=== PATIENT | male | born 1980 | race Caucasian/White ===

== ENCOUNTER 2016-10-24 19:21 | Inpatient (IN) | payer OTHER ==
[~2016-10-24] VITALS: Ht 160 cm; Wt 67.5 kg
[2016-10-24] MEDS ORDERED: DOCUSATE SODIUM 100 MG CAP PO PRN (22:00)
[2016-10-24] MEDS ORDERED: ONDANSETRON 4 MG TAB PO PRN (22:00)
[2016-10-24] MEDS ORDERED: oxyCODONE (CR) 15 MG TAB [oxyCONTIN] PO PRN (22:00)
[2016-10-24] MEDS ORDERED: MAGNESIUM HYDROXIDE 30ML CUP PO PRN (22:00)
[2016-10-24] MEDS ORDERED: BISACODYL 10 MG SUPP PR PRN (22:30)
[2016-10-24] MEDS ORDERED: LACTULOSE 30ML CUP PO PRN (22:30)
[2016-10-24] MEDS: ZOLPIDEM 5 MG TAB PO PRN (22:33)
[2016-10-24] MEDS: DIPHENHYDRAMINE 25 MG CAP PO PRN (22:33)
[2016-10-24 23:29] VITALS: Ht 160 cm; Wt 67.5 kg
[2016-10-25 06:48] LABS: ADD SCAN DIFF NO
[2016-10-25 06:52] LABS: BASOPHILS % 0.4 % (0.0-2.0); EOSINOPHILS # 0.5 10^3/ul (0.0-0.5); EOSINOPHILS % 6.3 % (0.0-7.0); HEMATOCRIT 41.8 % (42.0-52.0); LYMPHOCYTES # 2.1 10^3/ul (0.8-2.9); LYMPHOCYTES % 26.8 % (15.0-51.0); MEAN CORPUSCULAR HEMOGLOBIN 28.6 pg (29.0-33.0); MEAN CORPUSCULAR HGB CONC 33.5 g/dl (32.0-37.0); MEAN CORPUSCULAR VOLUME 85.5 fl (82.0-101.0); MEAN PLATELET VOLUME 8.6 fl (7.4-10.4); MONOCYTE # 0.6 10^3/ul (0.3-0.9); MONOCYTES % 7.4 % (0.0-11.0); NEUTROPHIL # 4.7 10^3/ul (1.6-7.5); NEUTROPHILS % 58.8 % (39.0-77.0); PLATELET COUNT 287 10^3/UL (140-415); RED BLOOD COUNT 4.89 10^6/ul (4.70-6.10)
[2016-10-25 07:18] LABS: ALBUMIN 4.3 g/dl (3.3-4.9)
[2016-10-25 07:19] LABS: POTASSIUM 4.3 mmol/L (3.5-5.1)
[2016-10-25 07:21] LABS: ALBUMIN/GLOBULIN RATIO 1.53; BILIRUBIN,INDIRECT 0.1 mg/dl (0-1.1); BILIRUBIN,TOTAL 0.1 mg/dl (0.2-1.3); CALCIUM 8.9 mg/dl (8.4-10.2); CREATININE 0.75 mg/dl (0.61-1.24); TOTAL PROTEIN 7.1 g/dl (6.1-8.1)
[2016-10-25] MEDS: POLYETHYLENE GLYCOL 17 GM PACKET PO SCH (09:00)
[2016-10-25] MEDS: BACLOFEN 10 MG TAB PO SCH ×2 (09:00→21:00)
[2016-10-25] MEDS: RANITIDINE 150 MG TAB PO SCH ×2 (09:00→21:00)
[2016-10-25] MEDS: TOLTERODINE (SR) 4 MG CAP PO SCH (09:00)
[2016-10-25] MEDS: GABAPENTIN 300 MG CAP PO SCH ×3 (09:22→22:02)
[2016-10-25 10:35] LABS: ADD UMIC NO; URINE BILIRUBIN (Dip) NEGATIVE (NEGATIVE); URINE BLOOD (Dip) NEGATIVE (NEGATIVE); URINE COLOR YELLOW (YELLOW); URINE GLUCOSE (Dip) NEGATIVE (NEGATIVE); URINE KETONES (Dip) NEGATIVE (NEGATIVE); URINE LEUKOCYTE ESTERASE (Dip) NEGATIVE (NEGATIVE); URINE NITRITE (Dip) NEGATIVE (NEGATIVE); URINE TOTAL PROTEIN (Dip) NEGATIVE (NEGATIVE); URINE UROBILINOGEN (Dip) 0.2 E.U./dL (0.1-1.0)
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
[2016-10-25 20:00] VITALS: BP 122/75; RESP 18
[2016-10-25] MEDS: SENNA TAB PO SCH (21:00)
[2016-10-25] MEDS: DIPHENHYDRAMINE 25 MG CAP PO PRN (22:02)
[2016-10-25] MEDS: ZOLPIDEM 5 MG TAB PO PRN (22:02)
[2016-10-26 07:30] VITALS: BP 87/49; RESP 18
[2016-10-26 08:13] LABS: BILIRUBIN,INDIRECT 0.1 mg/dl (0-1.1); CALCIUM 8.8 mg/dl (8.4-10.2); CREATININE 0.66 mg/dl (0.61-1.24)
[2016-10-26 08:14] LABS: ALBUMIN 4.3 g/dl (3.3-4.9); ALBUMIN/GLOBULIN RATIO 1.43; BILIRUBIN,TOTAL 0.1 mg/dl (0.2-1.3); TOTAL PROTEIN 7.3 g/dl (6.1-8.1)
[2016-10-26] MEDS: ENOXAPARIN 40 MG/0.4 ML SYG SC SCH (09:00)
[2016-10-26] MEDS: RANITIDINE 150 MG TAB PO SCH ×2 (09:00→22:22)
[2016-10-26] MEDS: BACLOFEN 10 MG TAB PO SCH ×2 (09:00→22:22)
[2016-10-26] MEDS: GABAPENTIN 300 MG CAP PO SCH ×3 (09:00→22:20)
[2016-10-26] MEDS: POLYETHYLENE GLYCOL 17 GM PACKET PO SCH (09:00)
[2016-10-26] MEDS: TOLTERODINE (SR) 4 MG CAP PO SCH (09:00)
--- NOTE | 2016-10-26 10:48 | PN ---
DATE: 10/26/2016 SUBJECTIVE: The patient is stable, no acute events overnight. No fevers, chills, nausea, vomiting. OBJECTIVE: VITAL SIGNS: Blood pressure 122/75, respirations 18, pulse 78, temperature 98.4. HEENT: Head is normocephalic. NECK: Supple. HEART: Regular rate. LUNGS: Show diminished breath sounds at the bases. ABDOMEN: Soft, nontender to palpation. No rebound or guarding. EXTREMITIES: Negative for clubbing, cyanosis. No edema. DERMATOLOGIC: No rashes. MUSCULOSKELETAL: The patient has noted deformity of lower legs. NEUROLOGIC: No change in exam. MEDICATIONS: The patient's medications have been reviewed. LABORATORY DATA: Shows a BMP within normal limits. AST 39, ALT 200, alkaline phosphatase 219. ASSESSMENT AND PLAN: 1. Spina bifida, status post L2 to L5 laminectomy with micro-neurosurgery for tethered cord release and resection of lipomyelomeningocele. Plan at this point is continue PT, OT. Continue pain contr ol. Follow up with neurosurgery in outpatient setting. 2. History of spina bifida. Continue to monitor. Continue rehabilitation. 3. Bilateral lower extremity weakness secondary to recent neurosurgery and laminectomy. Continue P T, OT. 4. Neuropathy. Continue Neurontin. 5. Transaminitis, likely due to recent surgery. Continue to monitor. Liver function tests trendin g down. 6. Constipation. Continue current bowel regimen. 7. Urinary incontinence, neurogenic bladder. Continue Detrol. 8. Right foot ulcer. Continue wound care. 9. Status post wound infection. The patient has completed antibiotic course. 10. Gastrointestinal and deep venous thrombosis prophylaxis. Continue Lovenox and H2 scooby. Dictated By: BERNA TOM/LUIS ARMANDO Conf#: [id number] DID#: [id number]
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
[2016-10-26] MEDS: HYDROmorphONE 4 MG TAB PO PRN (13:58)
[2016-10-26 20:00] VITALS: BP 136/76; RESP 18
[2016-10-26] MEDS: SENNA TAB PO SCH (21:00)
[2016-10-26] MEDS: DIPHENHYDRAMINE 25 MG CAP PO PRN (22:20)
[2016-10-26] MEDS: ZOLPIDEM 5 MG TAB PO PRN (22:20)
[2016-10-27] MEDS: BACLOFEN 10 MG TAB PO SCH ×2 (09:00→21:00)
[2016-10-27] MEDS: TOLTERODINE (SR) 4 MG CAP PO SCH (09:00)
[2016-10-27] MEDS: ENOXAPARIN 40 MG/0.4 ML SYG SC SCH (09:00)
[2016-10-27] MEDS: RANITIDINE 150 MG TAB PO SCH ×2 (09:00→21:00)
[2016-10-27] MEDS: POLYETHYLENE GLYCOL 17 GM PACKET PO SCH (09:00)
[2016-10-27] MEDS: GABAPENTIN 300 MG CAP PO SCH ×3 (09:37→22:35)
[2016-10-27] MEDS ORDERED: POLYETHYLENE GLYCOL 17 GM PACKET PO PRN (10:30)
--- NOTE | 2016-10-27 10:39 | PN ---
DATE: 10/27/2016 SUBJECTIVE: The patient remains stable. He has been refusing medications. He has been refusing Lo venox. I explained to the patient in detail about DVT risk. He still does not like the injections. No other events noted. No hemoptysis, hematemesis, or hematochezia. OBJECTIVE: VITAL SIGNS: Blood pressure 136/76, respiration 18, pulse 78, temperature 98.0. HEENT: Head is normocephalic. NECK: Supple. HEART: Regular rate. LUNGS: Show diminished breath sounds at base. ABDOMEN: Soft, nontender to palpation without rebound or guarding. EXTREMITIES: Negative for clubbing, cyanosis, or edema. DERMATOLOGIC: No rashes. MUSCULOSKELETAL: The patient has noted lower extremity deformity. NEUROLOGIC: No change in exam. MEDICATIONS: The patient's medications have been reviewed. LABORATORY DATA: Has been reviewed. ASSESSMENT AND PLAN: 1. 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 Plan at this point is continue PT, OT. Continue pain control. 2. History of spina bifida. Continue to monitor, continue rehabilitation 3. Lower extremity weakness secondary to recent neurosurgeon laminectomy. Continue PT, OT. 4. Neuropathy. Continue Neurontin. 5. Transaminitis. Continue to monitor. LFTs have been trending down. 6. Constipation. Continue current bowel regimen. 7. Urinary incontinence, neurogenic bladder. Continue Detrol. 8. Right foot wound. Continue local wound care. 9. Gastrointestinal and deep venous thrombosis prophylaxis. Continue H2 scooby. The patient is r efusing Lovenox. We will start aspirin 325 p.o. b.i.d. and monitor. Dictated By: BERNA TOM/NTS Conf#: [id number] DID#: [id number]
[2016-10-27] MEDS: ASPIRIN (EC) 325 MG TAB PO SCH ×2 (10:40→22:35)
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
[2016-10-27 20:00] VITALS: BP 124/77; PULSE 81; RESP 18
[2016-10-27] MEDS: SENNA TAB PO SCH (21:00)
[2016-10-27] MEDS: SCOPOLAMINE 1.5 MG PATCH TRANSDERM SCH (22:00)
[2016-10-27] MEDS: ZOLPIDEM 5 MG TAB PO PRN (22:36)
[2016-10-27] MEDS: DIPHENHYDRAMINE 25 MG CAP PO PRN (22:36)
[2016-10-28 07:30] VITALS: BP 94/55; RESP 18
[2016-10-28 07:33] LABS: ADD SCAN DIFF NO
[2016-10-28 07:38] LABS: BASOPHIL # 0.1 10^3/ul (0.0-0.1); BASOPHILS % 0.9 % (0.0-2.0); EOSINOPHILS # 0.6 10^3/ul (0.0-0.5); EOSINOPHILS % 6.9 % (0.0-7.0); HEMATOCRIT 43.9 % (42.0-52.0); HEMOGLOBIN 14.4 g/dl (14.0-18.0); LYMPHOCYTES # 2.7 10^3/ul (0.8-2.9); LYMPHOCYTES % 32.9 % (15.0-51.0); MEAN CORPUSCULAR HGB CONC 32.8 g/dl (32.0-37.0); MEAN CORPUSCULAR VOLUME 88.3 fl (82.0-101.0); MEAN PLATELET VOLUME 8.9 fl (7.4-10.4); MONOCYTE # 0.7 10^3/ul (0.3-0.9); NEUTROPHIL # 4.1 10^3/ul (1.6-7.5); NEUTROPHILS % 49.9 % (39.0-77.0); PLATELET COUNT 313 10^3/UL (140-415); RED BLOOD COUNT 4.97 10^6/ul (4.70-6.10); RED CELL DISTRIBUTION WIDTH 15.9 % (11.5-14.5); WHITE BLOOD COUNT 8.2 10^3/ul (4.8-10.8)
--- NOTE | 2016-10-28 08:09 | CONS ---
Date/Time of Note Date/Time of Note DATE: 10/28/16 TIME: 08:07 Consult Date/Type/Reason Admit Date/Time October 24, 2016 at 21:04 Initial Consult Date Subjective The patient remains stable. He has been refusing medications. He has been refusing Lovenox. No other events noted. No hemoptysis, hematemesis, or hematochezia. tolerating meds and therapies.poc reviewed with dr. nixon OBJECTIVE: HEENT: Head is normocephalic. NECK: Supple. HEART: Regular rate. LUNGS: Show diminished breath sounds at base. ABDOMEN: Soft, nontender to palpation without rebound or guarding. EXTREMITIES: Negative for clubbing, cyanosis, or edema. DERMATOLOGIC: No rashes. MUSCULOSKELETAL: The patient has noted lower extremity deformity. NEUROLOGIC: No change in exam. MEDICATIONS: The patient's medications have been reviewed. Objective Vital Signs Date Time Temp Pulse Resp B/P Pulse Ox O2 Delivery O2 Flow Rate FiO2 10/27/16 20:00 97.9 81 18 124/77 94 Room Air Intake and Output 10/27/16 10/27/16 10/28/16 15:00 23:00 07:00 Intake Total 1100 ml 360 ml Output Total 450 ml 200 ml Balance 650 ml 160 ml Results/Medications Result Diagram: 10/28/16 0605 10/26/16 0610 Results 24 hrs Laboratory Tests Test 10/28/16 06:05 White Blood Count 8.2 Red Blood Count 4.97 Hemoglobin 14.4 Hematocrit 43.9 Mean Corpuscular Volume 88.3 Mean Corpuscular Hemoglobin 29.0 Mean Corpuscular Hemoglobin Concent 32.8 Red Cell Distribution Width 15.9 H Platelet Count 313 Mean Platelet Volume 8.9 Neutrophils % 49.9 Lymphocytes % 32.9 Monocytes % 9.0 Eosinophils % 6.9 Basophils % 0.9 Nucleated Red Blood Cells % 0.0 Neutrophils # 4.1 Lymphocytes # 2.7 Monocytes # 0.7 Eosinophils # 0.6 H Basophils # 0.1 Nucleated Red Blood Cells # 0.0 Medications Current Medications Baclofen (Lioresal) 10 mg BID PO ; Start 10/25/16 at 09:00 Docusate Sodium (Colace) 100 mg BID PRN PO CONSTIPATION; Start 10/24/16 at 22: 00 Gabapentin (Neurontin) 600 mg TID PO Last administered on 10/27/16 22:35; Admin Dose 600 MG; Start 10/25/16 at 09:00 Ranitidine HCl (Zantac) 150 mg BID PO ; Start 10/25/16 at 09:00 Scopolamine (Transderm-Scop) 1 patch Q72H TRANSDERM ; Start 10/27/16 at 22:00 Tolterodine Tartrate (Detrol La) 4 mg DAILY PO ; Start 10/25/16 at 09:00 Hydromorphone HCl (Dilaudid) 4 mg Q4H PRN PO PAIN; Start 10/24/16 at 22:00 Magnesium Hydroxide (Milk Of Mag) 30 ml DAILY PRN PO CONSTIPATION; Start at 22:00 Ondansetron HCl (Zofran Tab) 4 mg TID PRN PO NAUSEA AND/OR VOMITING; Start at 22:00 Zolpidem Tartrate (Ambien) 10 mg HS PRN PO INSOMNIA Last administered on 22:36; Admin Dose 10 MG; Start 10/24/16 at 22:00 Oxycodone HCl (Oxycontin) 15 mg Q4 PRN PO PAIN LEVEL 1-5; Start 10/24/16 at 22: 00; Status Future Hold Diphenhydramine HCl (Benadryl) 25 mg Q6H PRN PO ITCHING Last administered on 22:36; Admin Dose 25 MG; Start 10/24/16 at 22:30 Senna (Senokot) 1 tab HS PO ; Start 10/25/16 at 21:00 Lactulose (Enulose) 20 gm DAILY PRN PO CONSTIPATION; Start 10/24/16 at 22:30 Bisacodyl (Dulcolax Supp) 10 mg DAILY PRN [place] CONSTIPATION; Start 10/24/16 at 22 :30 Acetaminophen (Tylenol Tab) 650 mg Q4H PRN PO PAIN; Start 10/24/16 at 22:30 Enoxaparin Sodium (Lovenox) 40 mg DAILY SC ; Start 10/26/16 at 09:00 Polyethylene Glycol (Miralax) 17 gm DAILY PRN PO CONSTIPATION; Start 10/27/16 at 10:30 Assessment/Plan Chief Complaint/Hosp Course 1. 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 Plan at this point is continue PT, OT. Continue pain control. 2. History of spina bifida. Continue to monitor, continue rehabilitation 3. Lower extremity weakness secondary to recent neurosurgeon laminectomy. Continue PT, OT. 4. Neuropathy. Continue Neurontin. 5. Transaminitis. Continue to monitor. LFTs have been trending down. 6. Constipation. Continue current bowel regimen. 7. Urinary incontinence, neurogenic bladder. Continue Detrol. 8. Right foot wound. Continue local wound care. 9. Gastrointestinal and deep venous thrombosis prophylaxis. Continue H2 scooby. The patient is refusing Lovenox. We will start aspirin 325 p.o. b.i.d. and monitor. Problems: ESCOBAR MARES MD Oct 28, 2016 08:09
[2016-10-28] MEDS: BACLOFEN 10 MG TAB PO SCH ×2 (09:00→21:00)
[2016-10-28] MEDS: RANITIDINE 150 MG TAB PO SCH ×2 (09:00→21:00)
[2016-10-28] MEDS: TOLTERODINE (SR) 4 MG CAP PO SCH (09:00)
[2016-10-28] MEDS: GABAPENTIN 300 MG CAP PO SCH ×4 (09:59→22:35)
[2016-10-28] MEDS: ENOXAPARIN 40 MG/0.4 ML SYG SC SCH (09:59)
[2016-10-28 20:10] VITALS: BP 108/72; RESP 19
[2016-10-28] MEDS: SENNA TAB PO SCH (21:00)
[2016-10-28] MEDS: DIPHENHYDRAMINE 25 MG CAP PO PRN (22:34)
[2016-10-28] MEDS: ZOLPIDEM 5 MG TAB PO PRN (22:34)
--- NOTE | 2016-10-29 07:43 | CONS ---
Date/Time of Note Date/Time of Note DATE: 10/29/16 TIME: 07:41 Consult Date/Type/Reason Admit Date/Time October 24, 2016 at 21:04 Subjective The patient remains stable. No other events noted. No hemoptysis, hematemesis , or hematochezia. tolerating meds and therapies.poc reviewed with dr. nixon OBJECTIVE: HEENT: Head is normocephalic. NECK: Supple. HEART: Regular rate. LUNGS: Show diminished breath sounds at base. ABDOMEN: Soft, nontender to palpation without rebound or guarding. EXTREMITIES: Negative for clubbing, cyanosis, or edema. DERMATOLOGIC: No rashes. MUSCULOSKELETAL: The patient has noted lower extremity deformity. NEUROLOGIC: No change in exam. MEDICATIONS: The patient's medications have been reviewed. Objective Vital Signs Date Time Temp Pulse Resp B/P Pulse Ox O2 Delivery O2 Flow Rate FiO2 10/28/16 20:10 98.4 73 19 108/72 97 10/27/16 20:00 Room Air Intake and Output 10/28/16 10/28/16 10/29/16 15:00 23:00 07:00 Intake Total 240 ml 420 ml 480 ml Balance 240 ml 420 ml 480 ml Results/Medications Result Diagram: 10/28/16 0605 10/26/16 0610 Medications Current Medications Baclofen (Lioresal) 10 mg BID PO ; Start 10/25/16 at 09:00 Docusate Sodium (Colace) 100 mg BID PRN PO CONSTIPATION; Start 10/24/16 at 22: 00 Gabapentin (Neurontin) 600 mg TID PO Last administered on 10/28/16t 22:35; Admin Dose 600 MG; Start 10/25/16 at 09:00 Ranitidine HCl (Zantac) 150 mg BID PO ; Start 10/25/16 at 09:00 Scopolamine (Transderm-Scop) 1 patch Q72H TRANSDERM ; Start 10/27/16 at 22:00 Tolterodine Tartrate (Detrol La) 4 mg DAILY PO ; Start 10/25/16 at 09:00 Hydromorphone HCl (Dilaudid) 4 mg Q4H PRN PO PAIN; Start 10/24/16 at 22:00 Magnesium Hydroxide (Milk Of Mag) 30 ml DAILY PRN PO CONSTIPATION; Start at 22:00 Ondansetron HCl (Zofran Tab) 4 mg TID PRN PO NAUSEA AND/OR VOMITING; Start at 22:00 Zolpidem Tartrate (Ambien) 10 mg HS PRN PO INSOMNIA Last administered on 22:34; Admin Dose 10 MG; Start 10/24/16 at 22:00 Oxycodone HCl (Oxycontin) 15 mg Q4 PRN PO PAIN LEVEL 1-5; Start 10/24/16 at 22: 00; Status Future Hold Diphenhydramine HCl (Benadryl) 25 mg Q6H PRN PO ITCHING Last administered on 22:34; Admin Dose 25 MG; Start 10/24/16 at 22:30 Senna (Senokot) 1 tab HS PO ; Start 10/25/16 at 21:00 Lactulose (Enulose) 20 gm DAILY PRN PO CONSTIPATION; Start 10/24/16 at 22:30 Bisacodyl (Dulcolax Supp) 10 mg DAILY PRN [place] CONSTIPATION; Start 10/24/16 at 22 :30 Acetaminophen (Tylenol Tab) 650 mg Q4H PRN PO PAIN; Start 10/24/16 at 22:30 Enoxaparin Sodium (Lovenox) 40 mg DAILY SC Last administered on 10/28/16 09:59 ; Admin Dose 40 MG; Start 10/26/16 at 09:00 Polyethylene Glycol (Miralax) 17 gm DAILY PRN PO CONSTIPATION; Start 10/27/16 at 10:30 Assessment/Plan Chief Complaint/Hosp Course 1. 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 Plan at this point is continue PT, OT. Continue pain control. 2. History of spina bifida. Continue to monitor, continue rehabilitation 3. Lower extremity weakness secondary to recent neurosurgeon laminectomy. Continue PT, OT. 4. Neuropathy. Continue Neurontin. 5. Transaminitis. Continue to monitor. LFTs have been trending down. 6. Constipation. Continue current bowel regimen. 7. Urinary incontinence, neurogenic bladder. Continue Detrol. 8. Right foot wound. Continue local wound care. 9. Gastrointestinal and deep venous thrombosis prophylaxis. Continue H2 scooby. The patient is refusing Lovenox. We will start aspirin 325 p.o. b.i.d. and monitor. Problems: ESCOBAR MARES MD Oct 29, 2016 07:43
[2016-10-29] MEDS: RANITIDINE 150 MG TAB PO SCH ×2 (09:00→21:00)
[2016-10-29] MEDS: ENOXAPARIN 40 MG/0.4 ML SYG SC SCH ×2 (09:00→14:33)
[2016-10-29] MEDS: GABAPENTIN 300 MG CAP PO SCH ×3 (09:00→22:06)
[2016-10-29] MEDS: BACLOFEN 10 MG TAB PO SCH ×2 (09:00→21:00)
[2016-10-29] MEDS: TOLTERODINE (SR) 4 MG CAP PO SCH (09:00)
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
[2016-10-29 20:00] VITALS: BP 113/73; PULSE 93; RESP 18
[2016-10-29] MEDS: SENNA TAB PO SCH (21:00)
[2016-10-29] MEDS: ZOLPIDEM 5 MG TAB PO PRN (22:05)
[2016-10-29] MEDS: DIPHENHYDRAMINE 25 MG CAP PO PRN (22:06)
[2016-10-30 07:30] VITALS: BP 95/52; RESP 18
[2016-10-30] MEDS: TOLTERODINE (SR) 4 MG CAP PO SCH (09:00)
[2016-10-30] MEDS: GABAPENTIN 300 MG CAP PO SCH ×3 (09:00→21:15)
[2016-10-30] MEDS: BACLOFEN 10 MG TAB PO SCH ×2 (09:00→21:00)
[2016-10-30] MEDS: RANITIDINE 150 MG TAB PO SCH ×2 (09:00→21:00)
[2016-10-30] MEDS: ENOXAPARIN 40 MG/0.4 ML SYG SC SCH ×2 (09:00→12:41)
--- NOTE | 2016-10-30 12:03 | CONS ---
Date/Time of Note Date/Time of Note DATE: 10/30/16 TIME: 12:03 Consult Date/Type/Reason Admit Date/Time October 24, 2016 at 21:04 Objective Vital Signs Date Time Temp Pulse Resp B/P Pulse Ox O2 Delivery O2 Flow Rate FiO2 10/30/16 07:30 98.3 77 18 95/52 96 10/29/16 20:00 Room Air Intake and Output 10/29/16 10/29/16 10/30/16 15:00 23:00 07:00 Intake Total 480 ml Balance 480 ml INTERDISCIPLINARY TEAM CONFERENCE BOWEL- Cont BLADDER-Cont SKIN- intact OT- DRESSING-min BATHING-min TOILETING-min PT- BED MOBILITY-min TRANSFERS-min AMBULATION-min W.C. MOBILITY-sba A/P- Interdisciplinary team conference held today. Please see interdisciplinary sheet. Working toward d.c. on 11/06 with post discharge follow up of physical therapy, occupational therapy. Results/Medications Result Diagram: 10/28/16 0605 10/26/16 0610 Medications Current Medications Baclofen (Lioresal) 10 mg BID PO ; Start 10/25/16 at 09:00 Docusate Sodium (Colace) 100 mg BID PRN PO CONSTIPATION; Start 10/24/16 at 22: 00 Gabapentin (Neurontin) 600 mg TID PO Last administered on 10/29/16 22:06; Admin Dose 600 MG; Start 10/25/16 at 09:00 Ranitidine HCl (Zantac) 150 mg BID PO ; Start 10/25/16 at 09:00 Scopolamine (Transderm-Scop) 1 patch Q72H TRANSDERM ; Start 10/27/16 at 22:00 Tolterodine Tartrate (Detrol La) 4 mg DAILY PO ; Start 10/25/16 at 09:00 Hydromorphone HCl (Dilaudid) 4 mg Q4H PRN PO PAIN; Start 10/24/16 at 22:00 Magnesium Hydroxide (Milk Of Mag) 30 ml DAILY PRN PO CONSTIPATION; Start at 22:00 Ondansetron HCl (Zofran Tab) 4 mg TID PRN PO NAUSEA AND/OR VOMITING; Start at 22:00 Zolpidem Tartrate (Ambien) 10 mg HS PRN PO INSOMNIA Last administered on 22:05; Admin Dose 10 MG; Start 10/24/16 at 22:00 Oxycodone HCl (Oxycontin) 15 mg Q4 PRN PO PAIN LEVEL 1-5; Start 10/24/16 at 22: 00; Status Future Hold Diphenhydramine HCl (Benadryl) 25 mg Q6H PRN PO ITCHING Last administered on 22:06; Admin Dose 25 MG; Start 10/24/16 at 22:30 Senna (Senokot) 1 tab HS PO ; Start 10/25/16 at 21:00 Lactulose (Enulose) 20 gm DAILY PRN PO CONSTIPATION; Start 10/24/16 at 22:30 Bisacodyl (Dulcolax Supp) 10 mg DAILY PRN [place] CONSTIPATION; Start 10/24/16 at 22 :30 Acetaminophen (Tylenol Tab) 650 mg Q4H PRN PO PAIN; Start 10/24/16 at 22:30 Enoxaparin Sodium (Lovenox) 40 mg DAILY SC Last administered on 10/29/16 14:33 ; Admin Dose 40 MG; Start 10/26/16 at 09:00 Polyethylene Glycol (Miralax) 17 gm DAILY PRN PO CONSTIPATION; Start 10/27/16 at 10:30 TOMÁS YUEN MD Oct 30, 2016 12:03 TOMÁS YUEN MD Oct 30, 2016 12:03
[2016-10-30 20:03] VITALS: BP 125/85; RESP 18
[2016-10-30] MEDS: SENNA TAB PO SCH (21:00)
[2016-10-30] MEDS: DIPHENHYDRAMINE 25 MG CAP PO PRN (21:15)
[2016-10-30] MEDS: ZOLPIDEM 5 MG TAB PO PRN (21:16)
[2016-10-30] MEDS: SCOPOLAMINE 1.5 MG PATCH TRANSDERM SCH (22:00)
--- NOTE | 2016-10-31 07:32 | PN ---
DATE: 10/30/2016 SUBJECTIVE: The patient is stable. No events overnight. No fevers, chills, nausea, vomiting. OBJECTIVE: VITAL SIGNS: Temperature 130/73, respiration 18, pulse 73, temperature 98.6. HEENT: Head is normocephalic. NECK: Supple. HEART: Regular rate. LUNGS: Show diminished breath sounds at the base. ABDOMEN: Soft, nontender to palpation. No rebound or guarding. EXTREMITIES: Negative for clubbing, cyanosis. No edema. DERMATOLOGICAL: No rashes. MUSCULOSKELETAL: No joint effusion. NEUROLOGICAL: No change in exam. MEDICATIONS: Have been reviewed. LABORATORY DATA: Has been reviewed. No significant change. ASSESSMENT AND PLAN: 1. 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 The patient is currently stable. Continue physical therapy/occ upational therapy. 2. Spina bifida. Continue to monitor. Continue rehabilitation. 3. Lower extremity weakness secondary to recent neurosurgery and laminectomy. Continue physical th erapy/occupational therapy. 4. Neuropathy. Continue Neurontin. 5. Transaminitis. Continue to monitor. LFTs have been trending down. Please note the patient ref used repeat LFT blood test. 6. Constipation. Continue current bowel regimen. 7. Urinary incontinence, neurogenic bladder. Continue Detrol. 8. Right foot wound. Continue with local wound care. 9. Gastrointestinal and deep venous thrombosis prophylaxis. Continue Lovenox. Dictated By: BERNA TOM/LUIS ARMANDO Conf#: [id number] DID#: [id number]
[2016-10-31 07:40] VITALS: BP 100/60; PULSE 72; RESP 20
[2016-10-31] MEDS: TOLTERODINE (SR) 4 MG CAP PO SCH (09:00)
[2016-10-31] MEDS: RANITIDINE 150 MG TAB PO SCH ×2 (09:00→21:00)
[2016-10-31] MEDS: BACLOFEN 10 MG TAB PO SCH ×2 (09:00→21:00)
[2016-10-31] MEDS: GABAPENTIN 300 MG CAP PO SCH (09:50)
[2016-10-31] MEDS: ENOXAPARIN 40 MG/0.4 ML SYG SC SCH (09:51)
--- NOTE | 2016-10-31 12:05 | PN ---
DATE: 10/31/2016 SUBJECTIVE: The patient is stable, no acute events overnight. No fevers, chills, nausea, vomiting. OBJECTIVE: VITAL SIGNS: Blood pressure 125/85, respirations 18, pulse 89, temperature 98.5. HEENT: Head is normocephalic. NECK: Supple. HEART: Regular rate. LUNGS: Show diminished breath sounds at the bases. ABDOMEN: Soft, nontender to palpation. No rebound or guarding. EXTREMITIES: Negative for clubbing, cyanosis. No edema. DERMATOLOGIC: No rashes. MUSCULOSKELETAL: No joint effusions. NEUROLOGIC: No change in exam. MEDICATIONS: The patient's medications have been reviewed. LABORATORY DATA: Has been reviewed. No new labs. ASSESSMENT AND PLAN: 1. Spina bifida, status post L2 to L5 laminectomy with microneurosurgery for tethered cord release and resection of lipomyelomeningocele. The patient is currently stable. Continue PT, OT. 2. History of spina bifida. Continue rehabilitation 3. Lower extremity weakness secondary to recent neurosurgery and laminectomy. Continue PT, OT. 4. Neuropathy. Continue Neurontin. 5. Transaminitis. Continue to monitor. The patient has been refusing to have repeat liver functio n tests. 6. Constipation. Continue current bowel regimen. 7. Urinary incontinence, neurologic bladder. Continue Detrol. 8. Right foot wound. Continue local wound care. 9. Gastrointestinal and deep venous thrombosis prophylaxis. Continue proton pump inhibitor and Tung enox. Dictated By: BERNA TOM/LUIS ARMANDO Conf#: [id number] DID#: [id number]
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
[2016-10-31] MEDS: GABAPENTIN 300 MG CAP PO PRN (17:55)
[2016-10-31] MEDS: ACETAMINOPHEN 325 MG TAB PO PRN (17:56)
[2016-10-31] MEDS: HYDROmorphONE 4 MG TAB PO PRN (18:17)
[2016-10-31 20:06] VITALS: BP 120/75; RESP 18
[2016-10-31] MEDS: SENNA TAB PO SCH (21:00)
[2016-10-31] MEDS: ZOLPIDEM 5 MG TAB PO PRN (21:03)
[2016-10-31] MEDS: DIPHENHYDRAMINE 25 MG CAP PO PRN (21:03)
[2016-11-01] MEDS: RANITIDINE 150 MG TAB PO SCH ×2 (09:00→21:00)
[2016-11-01] MEDS: BACLOFEN 10 MG TAB PO SCH ×2 (09:00→21:00)
[2016-11-01] MEDS: TOLTERODINE (SR) 4 MG CAP PO SCH (09:00)
--- NOTE | 2016-11-01 10:20 | PN ---
DATE: 11/01/2016 SUBJECTIVE: The patient is stable. No acute events overnight. No fevers, chills, nausea, vomiting , shortness of breath. OBJECTIVE: VITAL SIGNS: Blood pressure 120/75, respiration 18, pulse 78, temperature 97.8. HEENT: Head is normocephalic. NECK: Supple. HEART: Regular rate. LUNGS: Show diminished breath sounds at base. ABDOMEN: Soft, nontender to palpation without rebound or guarding. EXTREMITIES: Negative for clubbing, cyanosis, or edema. DERMATOLOGIC: No rashes. MUSCULOSKELETAL: No joint effusions. NEUROLOGIC: No change in exam. MEDICATIONS: Have been reviewed. LABORATORY DATA: Has been reviewed. No new labs. ASSESSMENT AND PLAN: 1. Spina bifida, status post L2 to L5 laminectomy with likely neurosurgery for tethered cord releas e and resection of lipomyelomeningocele. The patient is currently stable. Continue physical therap y, occupational therapy. 2. History of spina bifida. Continue rehabilitation. 3. Lower extremity weakness secondary to recent neurosurgery, laminectomy. Continue physical thera py, occupational therapy. 4. Neuropathy. Continue Neurontin. 5. Transaminitis. Continue to monitor. 6. Constipation. Continue current bowel regimen. 7. Urinary incontinence, neurogenic bladder. Continue Detrol. 8. Right foot wound. Continue local wound care. 9. Gastrointestinal and deep venous thrombosis prophylaxis. Continue proton pump inhibitor and Tung enox. Dictated By: BERNA TOM/LUIS ARMANDO Conf#: [id number] DID#: [id number]
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
[2016-11-01] MEDS: GABAPENTIN 300 MG CAP PO PRN ×3 (11:39→21:09)
[2016-11-01] MEDS: ENOXAPARIN 40 MG/0.4 ML SYG SC SCH (11:40)
[2016-11-01] MEDS: ACETAMINOPHEN 325 MG TAB PO PRN ×2 (11:45→18:42)
[2016-11-01 12:53] LABS: ADD SCAN DIFF NO
[2016-11-01 12:55] LABS: BASOPHIL # 0.1 10^3/ul (0.0-0.1); BASOPHILS % 0.7 % (0.0-2.0); EOSINOPHILS # 0.6 10^3/ul (0.0-0.5); EOSINOPHILS % 8.3 % (0.0-7.0); HEMATOCRIT 44.9 % (42.0-52.0); HEMOGLOBIN 15.2 g/dl (14.0-18.0); LYMPHOCYTES % 27.2 % (15.0-51.0); MEAN CORPUSCULAR HEMOGLOBIN 29.1 pg (29.0-33.0); MEAN CORPUSCULAR HGB CONC 33.9 g/dl (32.0-37.0); MEAN CORPUSCULAR VOLUME 85.9 fl (82.0-101.0); MEAN PLATELET VOLUME 8.5 fl (7.4-10.4); MONOCYTE # 0.6 10^3/ul (0.3-0.9); MONOCYTES % 7.6 % (0.0-11.0); NEUTROPHIL # 4.1 10^3/ul (1.6-7.5); NEUTROPHILS % 56.1 % (39.0-77.0); PLATELET COUNT 302 10^3/UL (140-415); RED BLOOD COUNT 5.23 10^6/ul (4.70-6.10); RED CELL DISTRIBUTION WIDTH 15.3 % (11.5-14.5); WHITE BLOOD COUNT 7.2 10^3/ul (4.8-10.8)
[2016-11-01 13:19] LABS: CALCIUM 9.3 mg/dl (8.4-10.2); CREATININE 0.59 mg/dl (0.61-1.24); POTASSIUM 4.4 mmol/L (3.5-5.1)
[2016-11-01] MEDS: CEPHALEXIN 250 MG CAP PO SCH ×2 (13:34→21:09)
[2016-11-01 20:00] VITALS: BP 110/76; RESP 18
[2016-11-01] MEDS: SENNA TAB PO SCH (21:00)
[2016-11-01] MEDS: DIPHENHYDRAMINE 25 MG CAP PO PRN (21:09)
[2016-11-01] MEDS: ZOLPIDEM 5 MG TAB PO PRN (21:09)
[2016-11-02 07:30] VITALS: BP 93/57; RESP 18
[2016-11-02] MEDS: ENOXAPARIN 40 MG/0.4 ML SYG SC SCH ×2 (09:00→11:28)
[2016-11-02] MEDS: RANITIDINE 150 MG TAB PO SCH ×2 (09:00→21:00)
[2016-11-02] MEDS: TOLTERODINE (SR) 4 MG CAP PO SCH (09:00)
[2016-11-02] MEDS: BACLOFEN 10 MG TAB PO SCH ×2 (09:00→21:00)
[2016-11-02] MEDS: CEPHALEXIN 250 MG CAP PO SCH ×3 (09:20→22:06)
--- NOTE | 2016-11-02 10:11 | PN ---
DATE: 11/02/2016 SUBJECTIVE: The patient is stable, was started on antibiotics yesterday for a possible dental absce ss. The patient is feeling better. No other acute events noted. OBJECTIVE: VITAL SIGNS: Blood pressure 110/76, respirations 18, pulse 83, temperature 97.8. HEENT: Head is normocephalic. NECK: Supple. HEART: Regular rate. LUNGS: Showed diminished breath sounds at the base. ABDOMEN: Soft, nontender to palpation. No rebound or guarding. EXTREMITIES: Negative for clubbing, cyanosis. No edema. DERMATOLOGIC: No rashes. MUSCULOSKELETAL: Have no joint effusion. NEUROLOGIC: No change in exam. MEDICATIONS: The patient's medications have been reviewed. LABORATORY DATA: Labs for 11/01/2016 have been reviewed. ASSESSMENT AND PLAN: 1. Spina bifida, status post L2-L5 laminectomy for tethered cord release and resection of lipomyelo meningocele. The patient is currently stable. Continue physical therapy. 2. Possible dental abscess. Continue Keflex. 3. History of spina bifida. Continue rehabilitation. 4. Lower extremity weakness secondary to recent neurosurgery and laminectomy. Continue physical th erapy and occupational therapy. 5. Neuropathy. Continue Neurontin. 6. Transaminitis. Continue to monitor. 7. Constipation. Continue the current bowel regimen. 8. Urinary incontinence, neurogenic bladder. Continue Detrol. 9. Gastrointestinal and deep venous thrombosis prophylaxis. Continue proton pump inhibitor and Tung enox. Dictated By: BERNA TOM/LUIS ARMANDO Conf#: [id number] DID#: [id number]
[2016-11-02] MEDS: ACETAMINOPHEN 325 MG TAB PO PRN (11:17)
[2016-11-02] MEDS: GABAPENTIN 300 MG CAP PO PRN ×3 (11:17→22:06)
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
[2016-11-02] MEDS ORDERED: AL HYDROX/MG HYDROX/SIMETH 30 ML CUP PO PRN (14:50)
[2016-11-02 15:08] LABS: ALBUMIN 4.6 g/dl (3.3-4.9); BILIRUBIN,INDIRECT 0.1 mg/dl (0-1.1); BILIRUBIN,TOTAL 0.1 mg/dl (0.2-1.3); TOTAL PROTEIN 7.6 g/dl (6.1-8.1)
--- NOTE | 2016-11-02 18:01 | RADRPT ---
PROCEDURE: MRI Lumbar Spine without contrast. CLINICAL INDICATION: 36-year-old male with weakness. No prior trauma. Patient with prior surgery. TECHNIQUE: An MRI of the lumbar spine was performed with multiple sequences in the sagittal and ax ial planes without contrast. Images reviewed on a high-resolution PACS system. COMPARISON: None available at the time of dictation. 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 There is a prominent fatty mass extending from within the thecal sac extending posteriorly into the soft tissues through the spinal dysraphism , with the fatty elements measuring at least 5.2 x 4.2 x 7.0 cm (AP x TR x CC) . On the axial images, there is no definite posterior dura seen from L3-L5. There is extension of the fatty mass through the spinal dysraphism into the superficial soft tissues (axial 57). The spina l cord is seen extending to the level of L3, where it terminates in the neural placode at the L2-3 l evel, which subsequently terminates in intrathecal fatty mass. There is heterogeneous signal at the level of the postoperative changes/radius (axial series image 43), There are postoperative changes f rom laminectomy at the L2-3 level from prior tethered cord release. 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 There are multiple areas of fluid signal intensity involving the posterior/superficial soft tissues, possibly related to prior p ostoperative changes. The alignment of the lumbar spine is normal. No vertebral body subluxation is seen. The interverte bral discs are normal in height and signal intensity. The vertebral body heights are maintained. T here is subtle heterogeneity of the signal involving the right aspect of the L3 vertebral body, whic h is nonspecific. No significant edema is seen. There is extensive heterogeneity in the posterior s oft tissues, with mixed fatty and cystic elements involving the meningocele, likely related to posto perative changes. L1-L2: The posterior margin of the disc is normal in appearance. No significant disc bulge or prot rusion is evident. The central canal and neural foramina are adequately patent. L2-L3: The posterior margin of the disc is normal in appearance. There are postoperative changes f rom laminectomy at this level. The thecal sac and lateral recesses are patent. There is no signifi cant neural foraminal narrowing. There are postoperative changes in the distal spinal cord/neural p lacode. No definite myelopathic changes are seen at this level. L3-L4: There is spinal dysraphism, with intrathecal fatty elements extending posteriorly into the s oft tissues. No concerning features are seen within the fatty mass. The posterior margin of the di sc is normal in appearance. The neural foramina are patent. L4-L5: There is spinal dysraphism, with intrathecal fatty elements extending posteriorly into the s oft tissues. No concerning features are seen within the fatty mass. The posterior margin of the di sc is normal in appearance. The neural foramina are patent. L5-S1: There is spinal dysraphism, with intrathecal fatty elements extending posteriorly into the s oft tissues. No concerning features are seen within the fatty mass. The posterior margin of the di sc is normal in appearance. The neural foramina are patent. IMPRESSION: 1. Postoperative changes at L2-3 from laminectomy and release of tethered cord. 2. Diffuse central increased T2 signal in the distal spinal cord from T11-L2, most suggestive of te rminal hydromyelia. There are postoperative changes from tethered cord release, without definite ar eas of myelopathy at this time. The tethered cord terminates in the neural placode/intrathecal fatt y mass. Comparison with preoperative examination is recommended. 3. 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 The above findings were discussed with Patient's physician WILFRID Patel by telephone on 11/02/2016 5:27:14 PM. RPTAT: HGAS .Ravinder Hensley MD, Date Time Electronically viewed and signed by .Ravinder Hensley MD, on 11/02/2016 18:01 .S/
--- NOTE | 2016-11-02 18:04 | RADRPT ---
PROCEDURE: MR Sacral Spine without contrast. CLINICAL INDICATION: 36-year-old male with weakness postoperatively. TECHNIQUE: An MRI of the sacral spine was performed with multiple sequences in the sagittal and ax ial planes without contrast. Images reviewed on a high-resolution PACS system. COMPARISON: None available at the time of dictation. 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 There is a prominent fatty mass extending from within the thecal sac extending posteriorly into the soft tissues through the spinal dysraphism, wit h the fatty elements measuring at least 5.2 x 4.2 x 7.0 cm (AP x TR x CC). On the axial images, the re is no definite posterior dura seen from L3-L5. There is extension of the fatty mass through the spinal dysraphism into the superficial soft tissues (axial 57). The spinal cord is seen extending to the level of L3, where it terminates in the neural placode at the L2-3 level, which subsequently te rminates in intrathecal fatty mass. There is heterogeneous signal at the level of the postoperative changes/radius (axial series image 43), There are postoperative changes from laminectomy at the L2-3 level from prior tethered cord release. 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 There are multiple areas of fluid signal intensity inv olving the posterior/superficial soft tissues, possibly related to prior postoperative changes. The remaining sacral vertebral bodies are normal in appearance. There is no evidence of fracture. The sacroiliac joints are normal in appearance. The visualized posterior iliac bones unremarkable. There is extensive heterogeneity in the posterior soft tissues, with mixed fatty and cystic element s involving the meningocele, likely related to postoperative changes. IMPRESSION: 1. Postoperative changes at L2-3 from laminectomy and release of tethered cord. 2. 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 3. The remaining sacrum is normal in appearance The above findings were discussed with Patient's physician WILFRID Patel by telephone on 11/02/2016 5:27:14 PM. RPTAT: HGAS .Ravinder Hensley MD, MD Date Time Electronically viewed and signed by .Ravinder Hensley MD, MD on 11/02/2016 18:03 .S/
[2016-11-02] MEDS: SENNA TAB PO SCH (21:00)
[2016-11-02] MEDS: SCOPOLAMINE 1.5 MG PATCH TRANSDERM SCH (22:00)
[2016-11-02] MEDS: ZOLPIDEM 5 MG TAB PO PRN (22:06)
[2016-11-03] MEDS: RANITIDINE 150 MG TAB PO SCH (09:00)
[2016-11-03] MEDS: BACLOFEN 10 MG TAB PO SCH (09:00)
[2016-11-03] MEDS: TOLTERODINE (SR) 4 MG CAP PO SCH (09:00)
--- NOTE | 2016-11-03 09:25 | PN ---
Date/Time of Note Date/Time of Note DATE: 11/03/16 TIME: 09:23 Assessment/Plan Lines/Catheters Urinary Cath still in place: No Assessment/Plan Assessment/Plan 1. Spina bifida, status post L2-L5 laminectomy for tethered cord release and resection of lipomyelomeningocele. The patient is currently stable. Continue physical therapy. 2. Possible dental abscess. Continue Keflex. 3. History of spina bifida. Continue rehabilitation. 4. Lower extremity weakness secondary to recent neurosurgery and laminectomy. Continue physical therapy and occupational therapy. 5. Neuropathy. Continue Neurontin. 6. Transaminitis. improving. Continue to monitor. 7. Constipation. Continue the current bowel regimen. 8. Urinary incontinence, neurogenic bladder. Continue Detrol. 9. Gastrointestinal and deep venous thrombosis prophylaxis. Continue proton pump inhibitor and Lovenox Subjective 24 Hr Interval Summary Free Text/Dictation The patient is stable, . The patient is feeling better. No other acute events noted. Exam/Review of Systems Vital Signs Vitals Vital Signs Date Time Temp Pulse Resp B/P Pulse Ox O2 Delivery O2 Flow Rate FiO2 11/02/16 07:30 98.1 68 18 93/57 95 10/31/16 07:40 Room Air Intake and Output 11/02/16 11/02/16 11/03/16 14:59 22:59 06:59 Intake Total 630 ml 360 ml Balance 630 ml 360 ml Exam HEENT: Head is normocephalic. NECK: Supple. HEART: Regular rate. LUNGS: Showed diminished breath sounds at the base. ABDOMEN: Soft, nontender to palpation. No rebound or guarding. EXTREMITIES: Negative for clubbing, cyanosis. No edema. DERMATOLOGIC: No rashes. MUSCULOSKELETAL: Have no joint effusion. NEUROLOGIC: No change in exam. Results Result Diagram: 11/01/16 1246 11/01/16 1246 Results 24 hrs Laboratory Tests Test 11/02/16 14:25 Total Bilirubin 0.1 L Direct Bilirubin 0.00 Indirect Bilirubin 0.1 Aspartate Amino Transf (AST/SGOT) 25 Alanine Aminotransferase (ALT/SGPT) 55 Alkaline Phosphatase 132 H Total Protein 7.6 Albumin 4.6 Medications Medications Current Medications Baclofen (Lioresal) 10 mg BID PO ; Start 10/25/16 at 09:00 Docusate Sodium (Colace) 100 mg BID PRN PO CONSTIPATION; Start 10/24/16 at 22: 00 Ranitidine HCl (Zantac) 150 mg BID PO ; Start 10/25/16 at 09:00 Scopolamine (Transderm-Scop) 1 patch Q72H TRANSDERM ; Start 10/27/16 at 22:00 Tolterodine Tartrate (Detrol La) 4 mg DAILY PO ; Start 10/25/16 at 09:00 Hydromorphone HCl (Dilaudid) 4 mg Q4H PRN PO PAIN Last administered on 18:17; Admin Dose 4 MG; Start 10/24/16 at 22:00 Magnesium Hydroxide (Milk Of Mag) 30 ml DAILY PRN PO CONSTIPATION; Start at 22:00 Ondansetron HCl (Zofran Tab) 4 mg TID PRN PO NAUSEA AND/OR VOMITING Last administered on 10/31/16 19:44; Admin Dose 4 MG; Start 10/24/16 at 22:00 Zolpidem Tartrate (Ambien) 10 mg HS PRN PO INSOMNIA Last administered on 22:06; Admin Dose 10 MG; Start 10/24/16 at 22:00 Oxycodone HCl (Oxycontin) 15 mg Q4 PRN PO PAIN LEVEL 1-5; Start 10/24/16 at 22: 00; Status Future Hold Diphenhydramine HCl (Benadryl) 25 mg Q6H PRN PO ITCHING Last administered on 21:09; Admin Dose 25 MG; Start 10/24/16 at 22:30 Senna (Senokot) 1 tab HS PO ; Start 10/25/16 at 21:00 Lactulose (Enulose) 20 gm DAILY PRN PO CONSTIPATION; Start 10/24/16 at 22:30 Bisacodyl (Dulcolax Supp) 10 mg DAILY PRN [place] CONSTIPATION; Start 10/24/16 at 22 :30 Acetaminophen (Tylenol Tab) 650 mg Q4H PRN PO PAIN Last administered on 11:17; Admin Dose 650 MG; Start 10/24/16 at 22:30 Enoxaparin Sodium (Lovenox) 40 mg DAILY SC Last administered on 11/02/16 11:28 ; Admin Dose 40 MG; Start 10/26/16 at 09:00 Polyethylene Glycol (Miralax) 17 gm DAILY PRN PO CONSTIPATION; Start 10/27/16 at 10:30 Gabapentin (Neurontin) 600 mg TID PRN PO PAIN Last administered on 11/02/16 22: 06; Admin Dose 600 MG; Start 10/31/16 at 12:00 Cephalexin (Keflex) 250 mg TID PO Last administered on 11/02/16 22:06; Admin Dose 250 MG; Start 11/01/16 at 13:00 Al Hydrox/Mg Hydrox/Simethicone (Mag-Al Plus) 30 ml Q4H PRN PO GASTROINTESTINAL UPSET Last administered on 11/02/16 14:55; Admin Dose 30 ML; Start 11/02/16 at 14:50 BERNA MARTIN DO Nov 03, 2016 09:25
[2016-11-03] MEDS: CEPHALEXIN 250 MG CAP PO SCH ×3 (10:06→22:21)
[2016-11-03] MEDS: ENOXAPARIN 40 MG/0.4 ML SYG SC SCH (10:08)
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
[2016-11-03] MEDS: GABAPENTIN 300 MG CAP PO PRN ×3 (13:35→22:21)
[2016-11-03] MEDS ORDERED: TOLTERODINE (SR) 4 MG CAP PO PRN (16:30)
[2016-11-03] MEDS ORDERED: RANITIDINE 150 MG TAB PO PRN (16:30)
[2016-11-03] MEDS ORDERED: BACLOFEN 10 MG TAB PO PRN (16:30)
[2016-11-03] MEDS: ACETAMINOPHEN 325 MG TAB PO PRN (18:18)
[2016-11-03 19:47] VITALS: BP 122/68; RESP 20
[2016-11-03] MEDS: SENNA TAB PO SCH (21:00)
[2016-11-03] MEDS: ZOLPIDEM 5 MG TAB PO PRN (22:21)
[2016-11-03] MEDS: DIPHENHYDRAMINE 25 MG CAP PO PRN (22:21)
--- NOTE | 2016-11-04 08:57 | PN ---
Date/Time of Note Date/Time of Note DATE: 11/04/16 TIME: 08:55 Assessment/Plan Lines/Catheters Urinary Cath still in place: No Assessment/Plan Assessment/Plan 1. Spina bifida, status post L2-L5 laminectomy for tethered cord release and resection of lipomyelomeningocele. The patient is currently stable. Continue physical therapy. 2. Possible dental abscess. Continue Keflex. improving 3. History of spina bifida. Continue rehabilitation. 4. Lower extremity weakness secondary to recent neurosurgery and laminectomy. Continue physical therapy and occupational therapy. 5. Neuropathy. Continue Neurontin. 6. Transaminitis. improving. Continue to monitor. 7. Constipation. Continue the current bowel regimen. 8. Urinary incontinence, neurogenic bladder. Continue Detrol. 9. Gastrointestinal and deep venous thrombosis prophylaxis. Continue proton pump inhibitor and Lovenox Subjective 24 Hr Interval Summary Free Text/Dictation The patient is stable, . The patient is feeling better. No other acute events noted Exam/Review of Systems Vital Signs Vitals Vital Signs Date Time Temp Pulse Resp B/P Pulse Ox O2 Delivery O2 Flow Rate FiO2 11/03/16 19:47 98.6 86 20 122/68 94 10/31/16 07:40 Room Air Intake and Output 11/03/16 11/03/16 11/04/16 15:00 23:00 07:00 Intake Total 1080 ml Balance 1080 ml Exam HEENT: Head is normocephalic. NECK: Supple. HEART: Regular rate. LUNGS: Showed diminished breath sounds at the base. ABDOMEN: Soft, nontender to palpation. No rebound or guarding. EXTREMITIES: Negative for clubbing, cyanosis. No edema. DERMATOLOGIC: No rashes. MUSCULOSKELETAL: Have no joint effusion. NEUROLOGIC: No change in exam. Results Result Diagram: 11/01/16 1246 11/01/16 1246 Medications Medications Current Medications Docusate Sodium (Colace) 100 mg BID PRN PO CONSTIPATION; Start 10/24/16 at 22: 00 Scopolamine (Transderm-Scop) 1 patch Q72H TRANSDERM ; Start 10/27/16 at 22:00 Hydromorphone HCl (Dilaudid) 4 mg Q4H PRN PO PAIN Last administered on t 18:17; Admin Dose 4 MG; Start 10/24/16 at 22:00 Magnesium Hydroxide (Milk Of Mag) 30 ml DAILY PRN PO CONSTIPATION; Start at 22:00 Ondansetron HCl (Zofran Tab) 4 mg TID PRN PO NAUSEA AND/OR VOMITING Last administered on 10/31/16 19:44; Admin Dose 4 MG; Start 10/24/16 at 22:00 Zolpidem Tartrate (Ambien) 10 mg HS PRN PO INSOMNIA Last administered on 22:21; Admin Dose 10 MG; Start 10/24/16 at 22:00 Oxycodone HCl (Oxycontin) 15 mg Q4 PRN PO PAIN LEVEL 1-5; Start 10/24/16 at 22: 00; Status Future Hold Diphenhydramine HCl (Benadryl) 25 mg Q6H PRN PO ITCHING Last administered on 22:21; Admin Dose 25 MG; Start 10/24/16 at 22:30 Senna (Senokot) 1 tab HS PO ; Start 10/25/16 at 21:00 Lactulose (Enulose) 20 gm DAILY PRN PO CONSTIPATION; Start 10/24/16 at 22:30 Bisacodyl (Dulcolax Supp) 10 mg DAILY PRN [place] CONSTIPATION; Start 10/24/16 at 22 :30 Acetaminophen (Tylenol Tab) 650 mg Q4H PRN PO PAIN Last administered on 18:18; Admin Dose 650 MG; Start 10/24/16 at 22:30 Polyethylene Glycol (Miralax) 17 gm DAILY PRN PO CONSTIPATION; Start 10/27/16 at 10:30 Gabapentin (Neurontin) 600 mg TID PRN PO PAIN Last administered on 11/03/16 22: 21; Admin Dose 600 MG; Start 10/31/16 at 12:00 Cephalexin (Keflex) 250 mg TID PO Last administered on 11/03/16 22:21; Admin Dose 250 MG; Start 11/01/16 at 13:00 Al Hydrox/Mg Hydrox/Simethicone (Mag-Al Plus) 30 ml Q4H PRN PO GASTROINTESTINAL UPSET Last administered on 11/02/16 14:55; Admin Dose 30 ML; Start 11/02/16 at 14:50 Enoxaparin Sodium (Lovenox) 40 mg DAILY@11 SC ; Start 11/04/16 at 11:00 Baclofen (Lioresal) 10 mg BID PRN PO MUSCLE SPASMS; Start 11/03/16 at 16:30 Ranitidine HCl (Zantac) 150 mg BID PRN PO GERD; Start 11/03/16 at 16:30 Tolterodine Tartrate (Detrol La) 4 mg DAILY PRN PO BLADDER SPASMS; Start at 16:30 BERNA MARTIN DO Nov 04, 2016 08:57
[2016-11-04] MEDS: CEPHALEXIN 250 MG CAP PO SCH ×3 (09:24→22:40)
[2016-11-04] MEDS: GABAPENTIN 300 MG CAP PO PRN ×3 (10:01→22:40)
[2016-11-04] MEDS: ACETAMINOPHEN 325 MG TAB PO PRN ×2 (10:01→16:35)
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
[2016-11-04] MEDS: ENOXAPARIN 40 MG/0.4 ML SYG SC SCH (12:22)
[2016-11-04] MEDS: PANTOPRAZOLE (EC) 40 MG TAB PO SCH (12:27)
[2016-11-04 20:00] VITALS: BP 136/86; RESP 20
[2016-11-04] MEDS: SENNA TAB PO SCH (21:00)
[2016-11-04] MEDS: ZOLPIDEM 5 MG TAB PO PRN (22:39)
[2016-11-04] MEDS: DIPHENHYDRAMINE 25 MG CAP PO PRN (22:40)
[2016-11-05] MEDS: PANTOPRAZOLE (EC) 40 MG TAB PO SCH (06:00)
[2016-11-05 08:00] VITALS: BP 127/78; PULSE 85; RESP 18
[2016-11-05] MEDS: CEPHALEXIN 250 MG CAP PO SCH ×3 (09:06→22:07)
--- NOTE | 2016-11-05 10:42 | PN ---
DATE: 11/05/2016 SUBJECTIVE: The patient is stable, no acute events overnight. No fevers, chills, nausea, vomiting. OBJECTIVE: VITAL SIGNS: Blood pressure 136/86, respiration 20, pulse 80, temperature 98.2. HEENT: Head is normocephalic. NECK: Supple. HEART: Regular rate. LUNGS: Show diminished breath sounds at base. ABDOMEN: Soft, nontender to palpation without rebound or guarding. EXTREMITIES: Negative for clubbing, cyanosis, edema. DERMATOLOGIC: No rashes. MUSCULOSKELETAL: No joint effusions. NEUROLOGIC: No change in exam. MEDICATIONS: Have been reviewed. LABORATORY DATA: Has been reviewed. No new labs. ASSESSMENT AND PLAN: 1. Spina bifida, status post L2-L5 laminectomy for attempted cord release and resection of lipomyel omeningocele. The patient is currently stable. Continue physical therapy. 2. Possible dental abscess, improving. Continue Keflex. 3. History of spina bifida. Continue PT, OT. 4. Lower extremity weakness secondary to recent neurosurgeon laminectomy. Continue current physica l therapy. 5. Neuropathy. Continue Neurontin. 6. Transaminitis, improving. Continue to monitor. 7. Constipation. Continue current bowel regimen. 8. Urinary incontinence, neurogenic bladder. Continue Detrol. 9. GI and DVT prophylaxis. Continue proton pump inhibitor and Lovenox. Dictated By: BERNA TOM/LUIS ARMANDO Conf#: [id number] DID#: [id number]
[2016-11-05] MEDS: GABAPENTIN 300 MG CAP PO PRN ×2 (12:31→22:06)
[2016-11-05] MEDS: ENOXAPARIN 40 MG/0.4 ML SYG SC SCH (12:31)
[2016-11-05] MEDS: ACETAMINOPHEN 325 MG TAB PO PRN (16:14)
[2016-11-05 20:50] VITALS: BP 122/80; RESP 18
[2016-11-05] MEDS: SENNA TAB PO SCH (21:00)
[2016-11-05] MEDS: SCOPOLAMINE 1.5 MG PATCH TRANSDERM SCH (22:00)
[2016-11-05] MEDS: DIPHENHYDRAMINE 25 MG CAP PO PRN (22:07)
[2016-11-05] MEDS: ZOLPIDEM 5 MG TAB PO PRN (22:07)
[2016-11-06] MEDS: PANTOPRAZOLE (EC) 40 MG TAB PO SCH (06:00)
[2016-11-06 07:30] VITALS: BP 131/87; RESP 18
--- NOTE | 2016-11-06 09:16 | PN ---
Date/Time of Note Date/Time of Note DATE: 11/06/16 TIME: 09:15 Assessment/Plan Lines/Catheters Urinary Cath still in place: No Assessment/Plan Assessment/Plan 1. Spina bifida, status post L2-L5 laminectomy for attempted cord release and resection of lipomyelomeningocele. The patient is currently stable. Continue physical therapy. 2. Possible dental abscess, improving. Continue Keflex. 3. History of spina bifida. Continue PT, OT. 4. Lower extremity weakness secondary to recent neurosurgeon laminectomy. Continue current physical therapy. 5. Neuropathy. Continue Neurontin. 6. Transaminitis, improving. Continue to monitor. 7. Constipation. Continue current bowel regimen. 8. Urinary incontinence, neurogenic bladder. Continue Detrol. 9. GI and DVT prophylaxis. Continue proton pump inhibitor and Lovenox. Subjective 24 Hr Interval Summary Free Text/Dictation the patient is stable, no acute events overnight. No fevers, chills, nausea, vomiting. Exam/Review of Systems Vital Signs Vitals Vital Signs Date Time Temp Pulse Resp B/P Pulse Ox O2 Delivery O2 Flow Rate FiO2 11/05/16 20:50 98.0 77 18 122/80 98 11/05/16 08:00 Room Air Intake and Output 11/05/16 11/05/16 11/06/16 15:00 23:00 07:00 Intake Total 1000 ml Balance 1000 ml Exam HEENT: Head is normocephalic. NECK: Supple. HEART: Regular rate. LUNGS: Show diminished breath sounds at base. ABDOMEN: Soft, nontender to palpation without rebound or guarding. EXTREMITIES: Negative for clubbing, cyanosis, edema. DERMATOLOGIC: No rashes. MUSCULOSKELETAL: No joint effusions. NEUROLOGIC: No change in exam. Medications Medications Current Medications Docusate Sodium (Colace) 100 mg BID PRN PO CONSTIPATION; Start 10/24/16 at 22: 00 Scopolamine (Transderm-Scop) 1 patch Q72H TRANSDERM ; Start 10/27/16 at 22:00 Hydromorphone HCl (Dilaudid) 4 mg Q4H PRN PO PAIN Last administered on t 18:17; Admin Dose 4 MG; Start 10/24/16 at 22:00 Magnesium Hydroxide (Milk Of Mag) 30 ml DAILY PRN PO CONSTIPATION; Start at 22:00 Ondansetron HCl (Zofran Tab) 4 mg TID PRN PO NAUSEA AND/OR VOMITING Last administered on 10/31/16 19:44; Admin Dose 4 MG; Start 10/24/16 at 22:00 Zolpidem Tartrate (Ambien) 10 mg HS PRN PO INSOMNIA Last administered on 22:07; Admin Dose 10 MG; Start 10/24/16 at 22:00 Oxycodone HCl (Oxycontin) 15 mg Q4 PRN PO PAIN LEVEL 1-5; Start 10/24/16 at 22: 00; Status Future Hold Diphenhydramine HCl (Benadryl) 25 mg Q6H PRN PO ITCHING Last administered on 22:07; Admin Dose 25 MG; Start 10/24/16 at 22:30 Senna (Senokot) 1 tab HS PO ; Start 10/25/16 at 21:00 Lactulose (Enulose) 20 gm DAILY PRN PO CONSTIPATION; Start 10/24/16 at 22:30 Bisacodyl (Dulcolax Supp) 10 mg DAILY PRN [place] CONSTIPATION; Start 10/24/16 at 22 :30 Acetaminophen (Tylenol Tab) 650 mg Q4H PRN PO PAIN Last administered on 16:14; Admin Dose 650 MG; Start 10/24/16 at 22:30 Polyethylene Glycol (Miralax) 17 gm DAILY PRN PO CONSTIPATION; Start 10/27/16 at 10:30 Gabapentin (Neurontin) 600 mg TID PRN PO PAIN Last administered on 11/05/16 22 :06; Admin Dose 600 MG; Start 10/31/16 at 12:00 Cephalexin (Keflex) 250 mg TID PO Last administered on 11/05/16 22:07; Admin Dose 250 MG; Start 11/01/16 at 13:00 Al Hydrox/Mg Hydrox/Simethicone (Mag-Al Plus) 30 ml Q4H PRN PO GASTROINTESTINAL UPSET Last administered on 11/02/16 14:55; Admin Dose 30 ML; Start 11/02/16 at 14:50 Enoxaparin Sodium (Lovenox) 40 mg DAILY@11 SC Last administered on 11/05/16 12 :31; Admin Dose 40 MG; Start 11/04/16 at 11:00 Baclofen (Lioresal) 10 mg BID PRN PO MUSCLE SPASMS; Start 11/03/16 at 16:30 Ranitidine HCl (Zantac) 150 mg BID PRN PO GERD; Start 11/03/16 at 16:30 Tolterodine Tartrate (Detrol La) 4 mg DAILY PRN PO BLADDER SPASMS; Start at 16:30 Pantoprazole (Protonix Tab) 40 mg DAILY@06 PO Last administered on 11/04/16t 12 :27; Admin Dose 40 MG; Start 11/04/16 at 12:30 BERNA MARTIN DO Nov 06, 2016 09:16
[2016-11-06] MEDS: CEPHALEXIN 250 MG CAP PO SCH ×2 (09:22→12:52)
[2016-11-06 10:30] VITALS: BP 131/84; PULSE 74; RESP 16
[2016-11-06] MEDS: ACETAMINOPHEN 325 MG TAB PO PRN (10:46)
[2016-11-06] MEDS: GABAPENTIN 300 MG CAP PO PRN (10:46)
[2016-11-06] MEDS: ENOXAPARIN 40 MG/0.4 ML SYG SC SCH (10:47)
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
== END 2016-11-06 14:00 | disposition home health service (06) | DRG 93 ==
LOC: VRC 21:04
PROVIDERS: ADMIT Physical Medicine & Rehabilitation; ATTEND Internal Medicine Nephrology
PROC: F07Z5ZZ Bed Mobility Treatment (ICD-10-PCS; principal; 2016-10-24)
PROC: F08Z2ZZ Grooming/Personal Hygiene Treatment (ICD-10-PCS; 2016-10-24)
DX: Q05.7 Lumbar spina bifida without hydrocephalus (principal); G62.9 Polyneuropathy, unspecified; N31.9 Neuromuscular dysfunction of bladder, unspecified; R52 Pain, unspecified; M62.81 Muscle weakness (generalized); K59.00 Constipation, unspecified; R32 Unspecified urinary incontinence; S91.301D Unspecified open wound, right foot, subsequent encounter; K04.7 Periapical abscess without sinus
CPT/HCPCS: 72148; 72196; 80048; 80053; 80076; 81003; 85025; 87081; 87086; 97110; 97112; 97116; 97150; 97163; 97167; 97530; 97535; 97542; J1170; J1650; L1820; L1832; L2270; L2275; L2820; L2830; L3310